=== PATIENT | male | born 1950 | race Caucasian/White ===

== ENCOUNTER → 2018-05-25 13:22 | Outpatient (CLI) | payer MEDICARE, BC, SELFPAY ==
--- NOTE | 2018-05-25 13:32 | CA_ITS ---
PROCEDURE: 2-D M-mode and color Doppler study INDICATIONS FOR THE TEST: Chest pain COPD Heart Murmur Tobacco Smoking Palpitations Fatigue Syncope Edema Hypertension+Diabetes Mellitus+ Rheumatic Fever SOB ROQUE Obesity Hyperlipidemia+ Family History HD Additional History cad,stent PATIENT INFORMATION HEIGHT: 75 WEIGHT:257 GENDER: Male B/P:125/73 2-D/M-MODE INTERPRETATION: 2-D MEASUREMENTS OBSERVED VALUES IN CMS Right Ventricular Dimension (RVDd) 2.4 Interventricular Septum (Thickness)(IVsd) 1.0 Left Ventricular Internal Dimensions(LVIDd) 5.1 Left Ventricular Posterior Wall (Thickness)(LVPWd) 0.8 Aortic Root 3.0 Aortic Cusp Separation 1.8 Left Atrial Dimensions (LAD) 4.7 2D 1. Left atrium is mildly enlarged, left ventricle is normal size, mild concentric left ventricular hypertrophy, visually estimated ejection fraction 55% with no regional wall motion abnormality. 2. The right atrium and right ventricle are mildly enlarged with normal contractility. 3. The aortic valve is minimally thickened and fibrosed. 4. The mitral and tricuspid valve leaflets are minimally thickened. 5. The pulmonic valve is poorly visualized. 6. No significant pericardial effusion noted. DOPPLER INTERROGATION: Doppler interrogation of the aortic, mitral and tricuspid valvular presence of mild mitral and tricuspid regurgitation, tricuspid regurgitation jet velocity is inadequate for calculation of the right ventricular systolic pressure, diastolic parameters are inconclusive. CONCLUSION: 1. Biatrial enlargement, normal left ventricular size, mild concentric left ventricular hypertrophy, visually estimated ejection fraction 55% with no regional wall motion abnormality, diastolic parameters are inconclusive. 2. Mild mitral and tricuspid regurgitation 3. No significant pericardial effusion noted.
== END ==
PROVIDERS: PCP Internal Medicine Adolescent Medicine; Visit Provider Internal Medicine
DX: E11.8 Type 2 diabetes mellitus with unspecified complications (principal); E78.5 Hyperlipidemia, unspecified; I11.9 Hypertensive heart disease without heart failure; I25.10 Atherosclerotic heart disease of native coronary artery without angina pectoris; Z95.5 Presence of coronary angioplasty implant and graft; Z79.84 Long term (current) use of oral hypoglycemic drugs
CPT/HCPCS: 93306

== ENCOUNTER → 2018-09-25 10:46 | Outpatient (CLI) | payer MEDICARE, SELFPAY ==
--- NOTE | 2018-09-25 10:48 | MR_ITS ---
MR head/brain wo con HISTORY: Vertigo and ataxia, left-sided ear pain with drainage of left ureter ITS.REASON: VERTIGO, ATAXIA ORDERING PHYSICIAN: Lai Knight MD PATIENT AGE: 68 years Comparison: 08/27/2018, 10/28/2011 TECHNIQUE: Standard multiplanar multiecho sequences are performed without contrast. FINDINGS: No midline shift, mass effect, intracranial hemorrhage, or hydrocephalus is evident. No evidence of acute infarction. The cerebellopontine angles, cerebellum, and brainstem are unremarkable. There are scattered periventricular and subcortical T2 white matter hyperintensities consistent with ischemic gliotic change from microvascular disease. These areas are slightly more numerous and more prominent compared to the previous exam of 10/28/2011. There remains a small cystic area in the inferior aspect of the left basal ganglia/putamen which is not significantly changed. This area measures approximately 13 x 9 mm and may represent an area of cystic encephalomalacia, prominent perivascular dilated spaces, or a choroidal fissure cyst. There is a small amount fluid in the mastoid sinuses. No sinus air-fluid level of the paranasal sinuses. Small retention cyst is present in the right maxillary sinus. The pituitary, optic chiasm, corpus callosum, and craniocervical junction of an unremarkable appearance. IMPRESSION: 1. No acute intracranial findings. 2. Mild periventricular and subcortical T2 white matter hyperintensities consistent with ischemic gliotic change from microvascular disease slightly progressed compared to the previous study. 3. No change in the cystic area in the left basal ganglia 4. Small amount of fluid in the mastoid sinuses
== END ==
PROVIDERS: PCP Internal Medicine Adolescent Medicine; Visit Provider Internal Medicine Adolescent Medicine
DX: R42 Dizziness and giddiness (principal)
CPT/HCPCS: 70551

== ENCOUNTER → 2019-03-04 07:31 | Outpatient (CLI) | payer MEDICARE, SELFPAY ==
--- NOTE | 2019-03-04 | CA_ITS ---
APPROVED REPORT Exam: Pharmacologic Technologist: jose norris, Ht: 6 ft 3 in Wt: 230 lbs BSA: 2.33 m2 HR: 58 bpm BP: 103/61 mmHg Indications: Anbn. EKG Medical History Medications: Levothyroxine,,,,, Metformin,,,,, Pantoprazole,,,,, TAMSULOSIN,,,,, INSULIN,,,,, Montelukast,,,,, MeLOXICAM,,,,, FeNOfibrate,,,,, BisOPROLOL,,,,, ClAvulanic Acid,,,,, DOcosahexanoic,,,,, Certizine,,,,, Allergies: Amoxiciillin, Clavulanic Acid Stress Test Details Test: LEXISCAN HR Resting HR: 63 bpm Max Heart Rate (APMHR): 151 bpm Max HR Achieved: 80 bpm Target HR (85% APMHR): 128 bpm % of APMHR: 52 Recovery HR: 72 bpm BP Resting BP: 103/61 mmHg Max BP: 114/63 mmHg Recovery BP: 109.0/61.0 mmHg ECG Resting ECG: Sinus Bradycardia Clinical Reason for Termination: Completed Protocol Exercise duration: 04:00 min Highest Stage Achieved: Stress ECG Conclusion Patient had no symptoms or arrhythmias. Less than 1.5mm ST Segment Changes. Stress was Non-Diagnostic Test Summary REST 11:31 . . 63 . 103/ 61 . . Stage 1 01:00 . . 70 . . . . Stage 2 01:00 . . 79 . 111/ 61 . . Stage 3 01:00 . . 76 . 114/ 63 . . Stage 4 01:00 . . 77 . 113/ 61 . Stop exercise at 04:00 RECOVERY 01:00 . . 75 . 109/ 61 . . RECOVERY 02:00 . . 73 . 109/ 61 . . RECOVERY 03:00 . . 72 . 112/ 58 . . RECOVERY 03:43 . . 70 . 114/ 63 . . Electronically signed by : Ozzy Borden, 03/04/2019 14:31:52
--- NOTE | 2019-03-04 07:34 | NM_ITS ---
APPROVED REPORT Exam: Nuclear Stress Test Indication: abnormal ekg, pre-op Patient Location: Outpatient Stress Tech: Alanawilla Hutchinson [place] Tech:Onelia GargMENDEL RT(R)(N) Ht: 6 ft 3 in Wt: 230 lbs HR: 58 bpm BP: 103/61 mmHg BSA: 2.33 m2 BMI: 28.7 History: abnormal ekg, pre-op Procedure: Patient received a 0.4 mg of intravenous Lexiscan, resting heart rate 58 bpm, resting blood pressure 103/61 mmHg, with Lexiscan maximum heart rate achived was 78 bpm which is Less than 85 % of the maximum predicted heart rate and blood pressure was 111/61 mmHg. With Lexiscan, patient denied any complaint of chest pain. Electrocardiogram Resting electrocardiogram shows sinus rhythm, with Lexiscan there is less than 1.[address] segment depression noted from the baseline EKG. The EKG portion of the Lexiscan Myoview is nondiagnostic. Cardiac Stress and Resting SPECT Images: Cardiac Stress and Resting SPECT images were obtained using technetium 99m Myoview 28.5 mCi stress and 10.12 mCi at rest. Gated SPECT with analysis of segmental wall motion and calculation of the ejection fraction also done. Cardiac stress and resting SPECT images show mild fixed defect anteroseptally and apically with normal contractility gated SPECT is likely secondary to soft tissue attenuation, no reversible ischemia seen, computer derived ejection fraction is over 65% with no regional wall motion abnormality, right ventricle is normal size and contractility. Conclusion: 1. The EKG portion of the Lexiscan Myoview is nondiagnostic. 2. No scintigraphic evidence of reversible ischemia seen, fixed defect anteroseptally and apical is likely secondary to soft tissue attenuation. Computer derived ejection fraction is over 65% with no regional wall motion abnormality, right ventricle is normal size and contractility. 3. Likely normal Lexiscan Myoview study. Electronically signed by : Ozzy Borden, 03/04/2019 14:33:55
--- NOTE | 2019-03-04 10:44 | HMH.ITSHM ---
Current Home Medications as stated by this patient Mal Resendiz or bilingual call center representative. [] tamsulosin monelukas metformin meloxican
== END ==
PROVIDERS: PCP Internal Medicine Adolescent Medicine; Visit Provider Urology
DX: E78.5 Hyperlipidemia, unspecified (principal); I11.9 Hypertensive heart disease without heart failure; I25.10 Atherosclerotic heart disease of native coronary artery without angina pectoris; Z01.810 Encounter for preprocedural cardiovascular examination; Z95.5 Presence of coronary angioplasty implant and graft
CPT/HCPCS: 78452; 93017; A9502; J2785

== ENCOUNTER → 2019-03-15 14:08 | Outpatient (CLI) | payer MEDICARE, SELFPAY ==
[2019-03-15 14:39] LABS: Basophils % 0.5 % (0.1-2.0); Eosinophils # 0.2 K/mm3 (0.0-0.4); Eosinophils % 2.3 % (0.1-12.0); Hematocrit 35.5 % (42.0-52.0); Hemoglobin 11.5 g/dL (14.1-18.0); Lymphocytes # 1.7 K/mm3 (0.7-4.5); Lymphocytes % 25.9 % (10-50); Mean Corpuscular HGB Conc 32.5 g/dL (31.8-35.4); Mean Corpuscular Hemoglobin 30.5 pg (27.0-31.2); Mean Corpuscular Volume 93.8 fl (80-94); Mean Platelet Volume 8.3 fl (7.4-10.4); Monocytes # 0.5 K/mm3 (0.1-1.0); Monocytes % 6.8 % (1.7-9.3); Neutrophils # 4.3 K/mm3 (1.8-7.8); Neutrophils % 64.4 % (37.0-80.0); Platelet Count 241 K/mm3 (142-424); Red Blood Count 3.79 M/mm3 (4.60-6.20); Red Cell Distribution Width 13.1 % (11.5-17.5); White Blood Count 6.7 K/mm3 (4.8-10.8)
[2019-03-15 15:40] LABS: Anion Gap 12.7 mEq/L (5-15); Blood Urea Nitrogen 18 mg/dL (7-18); Calcium 9.3 mg/dL (8.5-10.1); Carbon Dioxide 28 mmol/L (21.0-32.0); Chloride 102 mmol/L (98-107); Creatinine,Serum 1.04 mg/dL (0.70-1.30); Estimated Glomerular Filt Rate 71 ml/min (>60); GFR (African American) 86 ML/MIN (>60); Glucose 272 mg/dL (74-106); Potassium 4.7 mmoL/L (3.5-5.1); Sodium 138 mmol/L (136-145)
== END ==
PROVIDERS: PCP Internal Medicine Adolescent Medicine; Visit Provider Surgery
DX: K86.89 Other specified diseases of pancreas (principal); Z01.810 Encounter for preprocedural cardiovascular examination
CPT/HCPCS: 36415; 80048; 85025

== ENCOUNTER 2019-03-25 09:12 | Outpatient (CLI) | payer MEDICARE, SELFPAY ==
[2019-03-25] VITALS (29 sets, daily range): BP systolic 98–139; BP diastolic 58–81; PULSE 58–72; RESP 18; O2SAT 98; BMI 29.5
[2019-03-25 20:59] LABS: Hemoglobin A1C 10.3 % (0.0-7.0)
== END 2019-03-25 18:11 | disposition home or self-care (01) ==
LOC: INF 09:12
PROVIDERS: PCP Internal Medicine Adolescent Medicine; Visit Provider Internal Medicine Medical Oncology
DX: Z51.11 Encounter for antineoplastic chemotherapy (principal); C25.9 Malignant neoplasm of pancreas, unspecified; E11.9 Type 2 diabetes mellitus without complications; Z79.84 Long term (current) use of oral hypoglycemic drugs
CPT/HCPCS: 83036; 96413; 96415; 96417; J0640; J7060; J9206; J9263; Q0166

== ENCOUNTER 2019-04-08 09:14 | Outpatient (CLI) | payer MEDICARE, SELFPAY ==
[2019-04-08] VITALS (14 sets, daily range): BP systolic 118–138; BP diastolic 53–79; PULSE 54–71; RESP 20; TEMP 36.6; O2SAT 97–99; BMI 28.3
[2019-04-08 09:49] LABS: Basophils % 0.4 % (0.1-2.0); Eosinophils # 0.2 K/mm3 (0.0-0.4); Eosinophils % 4.1 % (0.1-12.0); Hematocrit 32.5 % (42.0-52.0); Hemoglobin 10.8 g/dL (14.1-18.0); Lymphocytes # 1.3 K/mm3 (0.7-4.5); Mean Corpuscular HGB Conc 33.2 g/dL (31.8-35.4); Mean Corpuscular Hemoglobin 30.2 pg (27.0-31.2); Mean Corpuscular Volume 91.2 fl (80-94); Mean Platelet Volume 8.3 fl (7.4-10.4); Monocytes # 0.6 K/mm3 (0.1-1.0); Monocytes % 10.5 % (1.7-9.3); Neutrophils # 3.2 K/mm3 (1.8-7.8); Neutrophils % 60.8 % (37.0-80.0); Platelet Count 207 K/mm3 (142-424); Red Blood Count 3.56 M/mm3 (4.60-6.20); Red Cell Distribution Width 12.9 % (11.5-17.5); White Blood Count 5.3 K/mm3 (4.8-10.8)
[2019-04-08 10:00] LABS: Alanine Aminotransferase 21 U/L (12-78); Albumin/Globulin Ratio 0.8 (1.1-1.8); Alkaline Phosphatase 59 U/L (46-116); Anion Gap 12.6 mEq/L (5-15); Aspartate Amino Transferase 16 U/L (15-37); Bilirubin,Total 0.4 mg/dL (0.2-1.0); Blood Urea Nitrogen 11 mg/dL (7-18); Calcium 8.9 mg/dL (8.5-10.1); Carbon Dioxide 28 mmol/L (21.0-32.0); Chloride 105 mmol/L (98-107); Creatinine Clearance Estimated 102 mL/min (50-200); Creatinine,Serum 0.76 mg/dL (0.70-1.30); Estimated Glomerular Filt Rate 102 ml/min (>60); GFR (African American) 123 ML/MIN (>60); Globulin 3.7 gm/dl (1.3-3.2); Glucose 212 mg/dL (74-106); Potassium 4.6 mmoL/L (3.5-5.1); Sodium 141 mmol/L (136-145); Total Protein,Serum 6.7 gm/dL (6.4-8.2)
== END 2019-04-08 17:36 | disposition home or self-care (01) ==
LOC: INF 09:14
PROVIDERS: Visit Provider Internal Medicine Medical Oncology
DX: Z51.11 Encounter for antineoplastic chemotherapy (principal); C25.9 Malignant neoplasm of pancreas, unspecified
CPT/HCPCS: 80053; 85025; 96375; 96413; 96415; 96417; J0640; J7060; J9206; J9263; Q0166

== ENCOUNTER 2019-04-22 09:53 | Outpatient (CLI) | payer MEDICARE, SELFPAY ==
[2019-04-22 09:57] VITALS: BMI 28.2
[2019-04-22 10:13] VITALS: BP 118/74; PULSE 67; RESP 18; TEMP 36.6; O2SAT 99
[2019-04-22 10:17] LABS: Basophils % 0.4 % (0.1-2.0); Eosinophils # 0.2 K/mm3 (0.0-0.4); Eosinophils % 4.5 % (0.1-12.0); Hematocrit 31.9 % (42.0-52.0); Hemoglobin 10.2 g/dL (14.1-18.0); Lymphocytes % 23.5 % (10-50); Mean Corpuscular HGB Conc 32.1 g/dL (31.8-35.4); Mean Corpuscular Hemoglobin 29.7 pg (27.0-31.2); Mean Corpuscular Volume 92.7 fl (80-94); Mean Platelet Volume 8.6 fl (7.4-10.4); Monocytes # 0.5 K/mm3 (0.1-1.0); Monocytes % 11.4 % (1.7-9.3); Neutrophils # 2.5 K/mm3 (1.8-7.8); Neutrophils % 60.2 % (37.0-80.0); Platelet Count 184 K/mm3 (142-424); Red Blood Count 3.45 M/mm3 (4.60-6.20); Red Cell Distribution Width 13.7 % (11.5-17.5); White Blood Count 4.1 K/mm3 (4.8-10.8)
[2019-04-22 10:30] LABS: Alanine Aminotransferase 22 U/L (12-78); Albumin Level 2.9 gm/dL (3.4-5.0); Albumin/Globulin Ratio 0.8 (1.1-1.8); Alkaline Phosphatase 71 U/L (46-116); Anion Gap 11.5 mEq/L (5-15); Aspartate Amino Transferase 22 U/L (15-37); Bilirubin,Total 0.3 mg/dL (0.2-1.0); Blood Urea Nitrogen 11 mg/dL (7-18); Calcium 8.8 mg/dL (8.5-10.1); Carbon Dioxide 27 mmol/L (21.0-32.0); Chloride 103 mmol/L (98-107); Creatinine Clearance Estimated 101 mL/min (50-200); Creatinine,Serum 0.94 mg/dL (0.70-1.30); Estimated Glomerular Filt Rate 80 ml/min (>60); GFR (African American) 96 ML/MIN (>60); Globulin 3.8 gm/dl (1.3-3.2); Glucose 273 mg/dL (74-106); Magnesium 1.5 mg/dL (1.4-2.2); Potassium 4.5 mmoL/L (3.5-5.1); Sodium 137 mmol/L (136-145); Total Protein,Serum 6.7 gm/dL (6.4-8.2)
[2019-04-22 10:43] VITALS: BP 116/79; PULSE 69; RESP 18; O2SAT 99
[2019-04-22 11:15] VITALS: BP 117/68; PULSE 71; RESP 18; TEMP 36.7; O2SAT 98
== END 2019-04-22 11:15 | disposition home or self-care (01) ==
LOC: INF 09:53
PROVIDERS: Visit Provider Internal Medicine Medical Oncology
DX: Z51.11 Encounter for antineoplastic chemotherapy (principal); C25.9 Malignant neoplasm of pancreas, unspecified; Q45.3 Other congenital malformations of pancreas and pancreatic duct
CPT/HCPCS: 80053; 83735; 85025; 96360; 96375; J1642

== ENCOUNTER 2019-04-29 08:18 | Outpatient (CLI) | payer MEDICARE, SELFPAY ==
[2019-04-29] VITALS (30 sets, daily range): BP systolic 117–153; BP diastolic 59–84; PULSE 64–87; RESP 18; O2SAT 96; BMI 28.2
[2019-04-29 08:38] LABS: Basophils % 0.3 % (0.1-2.0); Eosinophils # 0.2 K/mm3 (0.0-0.4); Eosinophils % 2.6 % (0.1-12.0); Hematocrit 34.1 % (42.0-52.0); Hemoglobin 10.8 g/dL (14.1-18.0); Lymphocytes # 1.2 K/mm3 (0.7-4.5); Lymphocytes % 19.3 % (10-50); Mean Corpuscular HGB Conc 31.6 g/dL (31.8-35.4); Mean Corpuscular Hemoglobin 29.1 pg (27.0-31.2); Mean Corpuscular Volume 92.1 fl (80-94); Mean Platelet Volume 8.4 fl (7.4-10.4); Monocytes # 0.6 K/mm3 (0.1-1.0); Monocytes % 9.5 % (1.7-9.3); Neutrophils # 4.2 K/mm3 (1.8-7.8); Neutrophils % 68.4 % (37.0-80.0); Platelet Count 190 K/mm3 (142-424); Red Blood Count 3.71 M/mm3 (4.60-6.20); Red Cell Distribution Width 13.8 % (11.5-17.5); White Blood Count 6.2 K/mm3 (4.8-10.8)
[2019-04-29 08:55] LABS: Alanine Aminotransferase 35 U/L (12-78); Albumin/Globulin Ratio 0.7 (1.1-1.8); Alkaline Phosphatase 120 U/L (46-116); Anion Gap 15.4 mEq/L (5-15); Aspartate Amino Transferase 44 U/L (15-37); Bilirubin,Total 0.4 mg/dL (0.2-1.0); Blood Urea Nitrogen 13 mg/dL (7-18); Calcium 9.3 mg/dL (8.5-10.1); Carbon Dioxide 26 mmol/L (21.0-32.0); Chloride 98 mmol/L (98-107); Creatinine Clearance Estimated 94 mL/min (50-200); Creatinine,Serum 1.07 mg/dL (0.70-1.30); Estimated Glomerular Filt Rate 69 ml/min (>60); GFR (African American) 83 ML/MIN (>60); Globulin 4.1 gm/dl (1.3-3.2); Glucose 281 mg/dL (74-106); Potassium 4.4 mmoL/L (3.5-5.1); Sodium 135 mmol/L (136-145); Total Protein,Serum 7.1 gm/dL (6.4-8.2)
== END 2019-04-29 18:12 | disposition home or self-care (01) ==
LOC: INF 08:18
PROVIDERS: Visit Provider Internal Medicine Medical Oncology
DX: Z51.11 Encounter for antineoplastic chemotherapy (principal); C25.9 Malignant neoplasm of pancreas, unspecified
CPT/HCPCS: 80053; 85025; 96413; 96415; 96417; J0640; J9206; J9263; Q0166

== ENCOUNTER 2019-05-04 11:11 | Outpatient (CLI) | payer MEDICARE, SELFPAY ==
[2019-05-04 11:04] VITALS: BMI 27.6
[2019-05-04 11:24] LABS: Basophils % 0.3 % (0.1-2.0); Eosinophils # 0.3 K/mm3 (0.0-0.4); Eosinophils % 3.9 % (0.1-12.0); Hematocrit 34.2 % (42.0-52.0); Hemoglobin 10.9 g/dL (14.1-18.0); Lymphocytes # 1.3 K/mm3 (0.7-4.5); Lymphocytes % 19.8 % (10-50); Mean Corpuscular Hemoglobin 28.9 pg (27.0-31.2); Mean Corpuscular Volume 90.4 fl (80-94); Monocytes # 0.1 K/mm3 (0.1-1.0); Neutrophils # 4.9 K/mm3 (1.8-7.8); Platelet Count 208 K/mm3 (142-424); Red Blood Count 3.78 M/mm3 (4.60-6.20); Red Cell Distribution Width 13.4 % (11.5-17.5); White Blood Count 6.7 K/mm3 (4.8-10.8)
[2019-05-04 11:39] LABS: Alanine Aminotransferase 35 U/L (12-78); Albumin/Globulin Ratio 0.7 (1.1-1.8); Alkaline Phosphatase 135 U/L (46-116); Anion Gap 12.9 mEq/L (5-15); Aspartate Amino Transferase 42 U/L (15-37); Bilirubin,Total 0.6 mg/dL (0.2-1.0); Blood Urea Nitrogen 13 mg/dL (7-18); Calcium 9.1 mg/dL (8.5-10.1); Carbon Dioxide 28 mmol/L (21.0-32.0); Chloride 100 mmol/L (98-107); Creatinine Clearance Estimated 97 mL/min (50-200); Creatinine,Serum 0.83 mg/dL (0.70-1.30); Estimated Glomerular Filt Rate 92 ml/min (>60); GFR (African American) 111 ML/MIN (>60); Globulin 4.2 gm/dl (1.3-3.2); Glucose 216 mg/dL (74-106); Potassium 3.9 mmoL/L (3.5-5.1); Sodium 137 mmol/L (136-145); Total Protein,Serum 7.2 gm/dL (6.4-8.2)
--- NOTE | 2019-05-04 11:56 | CT_ITS ---
PROCEDURE: CT CHEST WO/W CON CLINCAL INDICATION: PANCREATIC CA COMPARISON: CTAC CTA-CHEST from 10/31/2014 CT ABDOMEN PELVIS WO/W CON from 05/04/2019 TECHNIQUE: IV Contrast: 75ml Optiray 350 Axial images obtained with sagittal and coronal reformats. All CT scans at the facility use one or more dose reduction, viz: automated exposure control, ma/kV adjustment per patient size (including targeted exams where dose is matched to indication, i.e. head), or iterative reconstruction technique. FINDINGS: HEART,AORTA,PULMONARY ARTERIES extensive coronary calcifications MEDIASTINAL AND HILAR STRUCTURES: Are noted. LUNGS: There are chronic increased predominately interstitial densities in both lung johnson with basilar predominance consistent with chronic pneumonitis. Some new ground-glass opacities are seen in the superior segment of the left lower lobe adjacent to the pleural surface. [place] dependent atelectasis here is favored over acute pneumonitis. PLEURAL SPACES: No significant effusion. No evidence of pneumothorax. BONY STRUCTURES: No acute bony abnormalities apparent. LYMPH NODES: No enlarged lymph nodes evident. Multiple unchanged calcified mediastinal lymph nodes.4 UPPER ABDOMEN: Innumerable hypodense lesions are seen within the incompletely imaged liver suspicious for metastases largest is in the posterior right liver 1.8 centimeters on image 80 series 8. There is also new pneumobilia likely due to non competent sphincter of Oddi. The pancreatic bed is incompletely visualized. Correlation with postcontrast CT of abdomen and pelvis is recommended for further assessment. ADDITIONAL FINDINGS: No other significant abnormalities. IMPRESSION: No acute findings in the thorax with relative stable appearance of thorax from 10/31/2014. Extensive coronary calcifications. New innumerable hypodense lesions suspicious for metastases throughout incompletely visualized liver. Follow-up is recommended. Dictated by: Garfield Stapleton 05/04/2019 14:06 Electronically signed by Garfield Stapleton in [place] 05/04/2019 14:06
--- NOTE | 2019-05-04 11:56 | CT_ITS ---
PROCEDURE: And metastatic lymphadenopathy. Common bile duct stent is in place with interval development of pancreatic ductal dilatation. CT ABDOMEN PELVIS WO/W CON CLINICAL INDICATION: PANCREATIC CA liver metastases Progression of none pancreatic cancer now with widespread COMPARISON: CT ABDOMEN PELVIS W CON from 01/30/2019 TECHNIQUE: IV Contrast: 75ML OPTIRAY 350 Oral Contrast 20ml Gastroview Axial images obtained with sagittal and coronal reformats. All CT scans at the facility use one or more dose reduction, viz: automated exposure control, ma/kV adjustment per patient size (including targeted exams where dose is matched to indication, i.e. head), or iterative reconstruction technique. FINDINGS: LOWER THORAX: No acute finding ABDOMEN & PELVIS: There has been marked interval change in the previously described pancreatic mass. There is now a mass epi centered at the pancreatic head and junction with uncinate process measuring at least 5 x 5.7 centimeters. This was approximately 2.7 x 2.8 centimeters. There is a biliary stent in place in the common bile duct extending from the level superior to the pancreatic head to its inferior aspect. There is dilatation of the pancreatic duct to approximately 11 millimeters at the level of mid pancreatic body. No intrahepatic biliary ductal dilatation is apparent. There is new peripancreatic and retroperitoneal lymphadenopathy. Para caval lymph nodes measuring 2.2 and 2.4 centimeters are noted. Inter aortocaval lymph nodes 1.5 x 1.8 centimeters and 2.3 x 2.3 centimeters are noted. Node in the fat planes along the anterior inferior aspect of the pancreatic body measuring up to 2 centimeters is noted. Some increased attenuation of the peripancreatic fat planes is noted. This could be as result of superimposed pancreatitis. Some thickening of the bilateral anterior renal fascia is noted. There is the appearance of some relative wall thickening of duodenal C loop. This could be due to nondistention or inflammation. There is a nonspecific appearance of wall thickening of the right colon which is nondistended. The findings may be artifactual. Inflammatory or neoplastic infiltration of the colon is felt to be less likely. Innumerable hypodense space-occupying liver lesions are seen throughout all hepatic segments largest lesion 2.5 x 2.5 centimeters is seen in the medial segment of the left liver. Pneumobilia is incidentally noted indicating non competent sphincter of OD. Postsurgical change from cholecystectomy is noted. A 2.5 centimeter cortical cyst of mid left kidney is noted. A few scattered colonic diverticuli are noted. A small amount of free fluid is seen in the left pelvis. IMPRESSION: Progression of pancreatic carcinoma with widespread intrahepatic metastases and metastatic lymphadenopathy. Dictated by: Garfield Stapleton 05/04/2019 14:29 Electronically signed by Garfield Stapleton in [facility] 05/04/2019 14:29
[2019-05-05 18:20] LABS: CA 19-9 396 U/mL (0-35)
== END 2019-05-04 12:30 | disposition home or self-care (01) ==
LOC: RAD 11:12
PROVIDERS: PCP Internal Medicine Adolescent Medicine; Visit Provider Internal Medicine Medical Oncology
DX: C25.0 Malignant neoplasm of head of pancreas (principal); C78.7 Secondary malignant neoplasm of liver and intrahepatic bile duct; C79.89 Secondary malignant neoplasm of other specified sites; E11.9 Type 2 diabetes mellitus without complications; Z79.4 Long term (current) use of insulin; Z79.899 Other long term (current) drug therapy; K86.81 Exocrine pancreatic insufficiency
CPT/HCPCS: 71270; 74178; 80053; 85025; 86316; J1642; Q9967